=== PATIENT | male | born 1960 | race Caucasian/White ===

== ENCOUNTER 2017-02-06 09:00 | Emergency (ER) | payer OTHER ==
--- NOTE | 2017-02-06 09:21 | EDM.PDOC ---
ED HPI GENERAL MEDICAL PROBLEM - General Chief Complaint: Bite:Animal, Insect Stated Complaint: DOG BITE Time Seen by Provider: 02/06/17 09:12 Source of Information: Reports: Patient History Limitations: Reports: No Limitations - History of Present Illness INITIAL COMMENTS - FREE TEXT/NARRATIVE: Patient presents to the ED with complaint of a dog bite. 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 No other complaints. He was bitten in the right forearm. Onset: Today Onset Date: 02/06/17 Onset Time: 09:00 Location: Reports: Upper Extremity, Right Severity: Mild - Related Data Allergies Allergy/AdvReac Type Severity Reaction Status Date / Time No Known Drug Allergies Allergy Other Verified 02/06/17 09:12 Home Meds: Home Meds sulfaSALAzine [sulfaSALAzine DR] 500 mg PO BID 11/01/13 [History] Multivitamin [Multivitamins] 1 each PO DAILY 11/02/13 [History] Metoprolol Tartrate 12.5 mg PO BID 01/04/14 [History] Acetaminophen [Tylenol Extra Strength] 1,000 mg PO Q6H PRN 06/09/14 [History] Tetrahydrz/Dext 70/Peg 400/Pvp [Eye Drops] 15 ml OP ASDIRECTED 06/09/14 [History ] predniSONE [Prednisone] 7.5 mg PO DAILY 06/09/14 [History] cycloSPORINE [Restasis] 1 drop EYEBOTH DAILY 08/01/16 [History] Past Medical History HEENT History: Reports: Impaired Vision Cardiovascular History: Reports: Hypertension Musculoskeletal History: Reports: Arthritis, Fracture Neurological History: Reports: None Psychiatric History: Reports: Depression - Past Surgical History HEENT Surgical History: Reports: Other (See Below) GI Surgical History: Reports: Hernia, Inguinal, Other (See Below) Musculoskeletal Surgical History: Reports: Other (See Below) Social & Family History - Tobacco Use Smoking Status *Q: Never Smoker Second Hand Smoke Exposure: No - Caffeine Use Caffeine Use: Reports: Coffee Other Caffeine Use: coffee 4 cups. pop 4 cans - Alcohol Use Days Per Week of Alcohol Use: 7 Number of Drinks Per Day: 1 Total Drinks Per Week: 7 - Recreational Drug Use Recreational Drug Use: No Drug Use in Last 12 Months: No - Living Situation & Occupation Living situation: Reports: Occupation: Employed Review of Systems - Review of Systems Review Of Systems: ROS reveals no pertinent complaints other than HPI. ED EXAM, GENERAL - Physical Exam Exam: See Below Exam Limited By: No Limitations General Appearance: Alert, WD/WN, No Apparent Distress Skin Exam: Warm, Dry, Wound/Incision (small 2 cm scrape of the right forearm. No puncture) Departure - Departure Time of Disposition: 09:22 Disposition: Home, Self-Care 01 Condition: Good Clinical Impression: Dog bite of arm - Discharge Information Instructions: Animal Bite, [id number] Additional Instructions: Take all of the course of augmentin to reduce your chance of infection. Wash with soap and water You can take the dressing off as soon as it is no longer draining Signs of infection can include temperature over 101.5F, increased swelling, redness, pain, site becomes hot to the touch, starts having a red streak going up your arm, or any pus like drainage. Please call with any questions or concerns. - Problem List & Annotations (1) Dog bite of arm SNOMED Code(s): 485752081 Code(s): S41.159A - OPEN BITE OF UNSPECIFIED UPPER ARM, INITIAL ENCOUNTER; W54.0XXA - BITTEN BY DOG, INITIAL ENCOUNTER Status: Acute Priority: Low Qualifiers: Encounter type: initial encounter Laterality: right Qualified Code(s): S41.151A - Open bite of right upper arm, initial encounter; W54.0XXA - Bitten by dog, initial encounter - Problem List Review Problem List Initiated/Reviewed/Updated: Yes - Assessment/Plan Assessment:: dog bite, right forearm Plan: Take all of the course of augmentin to reduce your chance of infection. Wash with soap and water You can take the dressing off as soon as it is no longer draining Signs of infection can include temperature over 101.5F, increased swelling, redness, pain, site becomes hot to the touch, starts having a red streak going up your arm, or any pus like drainage. Please call with any questions or concerns.
== END 2017-02-06 09:30 | disposition home or self-care (01) ==
LOC: VM.ED 09:00
CPT/HCPCS: 99283

== ENCOUNTER 2017-03-12 11:15 | Emergency (ER) | payer OTHER ==
[2017-03-12] MEDS ORDERED: Sodium Chloride 0.9% 10 ML Syringe FLUSH PRN (11:24)
[2017-03-12] MEDS ORDERED: Sodium Chloride 0.9% 1,000 ML IV ONE (11:25)
[2017-03-12] MEDS ORDERED: Adenosine 6 MG/2 ML SDV IVPUSH ONE ×2 (11:26→11:50)
[2017-03-12 12:13] LABS: CHLORIDE,CL 104 mmol/L (98-107); SODIUM,NA 140 mmol/L (136-145)
[2017-03-12 14:09] VITALS: BP 104/62
--- NOTE | 2017-03-15 07:58 | ER ---
Date of Service: 03/12/2017 SUBJECTIVE: Gerald presents to the emergency room with complaints of diaphoresis and palpitations. The patient states that he has been experiencing these symptoms for several hours today. The patient states he has no history of tachydysrhythmia and denies any coronary artery disease. 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 He initially presented to the clinic and then was brought over to the emergency room for evaluation and treatment. PAST MEDICAL HISTORY: 1. Hypertension. 2. Vitamin D3 deficiency. 3. Benign tumor behind right eye. 4. Rheumatoid arthritis. 5. Depression. MEDICATIONS: 1. Losartan/hydrochlorothiazide. 2. Vitamin D3. 3. Aspirin. 4. Flomax. 5. CellCept. 6. Lexapro. 7. Metoprolol tartrate. 8. Cyclosporine. 9. Multivitamin. 10.Prednisone. 11.Sulfasalazine for RA flares. ALLERGIES: NKDA. REVIEW OF SYSTEMS: General: Denies any fever or chills. HEENT: No sore throat, rhinorrhea, or congestion. Respiratory: No shortness of breath. Cardiac: Denies any substernal chest pain. No jaw, arm, neck, or back pain. Please see history present illness. Gastrointestinal: No nausea, vomiting, or diarrhea. No melena, hematochezia, or hematemesis. Genitourinary: Denies any dysuria. Musculoskeletal: No myalgias or arthralgias. Neurologic: No fainting, blackouts, or lightheadedness. PHYSICAL EXAMINATION: General: This is a 57-year-old male patient, who is in no acute distress. Vital Signs: Blood pressure is 135/113, heart rate is 144, temperature is 36.7, respiratory rate 18, and O2 saturations 99%. Skin: Warm, pale, and mildly diaphoretic. HEENT: Mouth, oral mucosa is moist. Lungs: Clear to auscultation. Heart: Tachycardic but regular. No murmurs noted. Lungs: Clear to auscultation. Abdomen: Soft, nontender. There is no masses noted. There is no hepatosplenomegaly noted. Extremities: Without edema. Neurologic: The patient is alert and oriented, answers all questions appropriately. His speech is fluent. His gait is within normal limits. DIAGNOSTIC DATA: A 12-lead EKG was obtained showing an SVT at a rate of approximately 150. LABORATORY DATA: WBCs 12.6, hemoglobin is 14.1, and platelets are 273. Coags; PT is 9.9, INR is 0.9. Chemistry; sodium is 140, potassium is 4.0, chloride is 104, bicarb is 25, BUN is 23, creatinine is 1.3, GFR is 57, glucose is 127, calcium is 9.2, corrected calcium is 9.36, phosphorus is 3.7, magnesium is 1.9, total bilirubin is 0.7, AST is 35, ALT is 52, alkaline phosphatase is 76, CK elevated at 473, CK-MB 13.2, troponin is less than 0.017, total protein is 6.5, TSH is 1.050. EMERGENCY ROOM COURSE: IV access was established. He was started on normal saline wide open. He was given initially adenosine 6 mg IV and this did not convert him to a sinus rhythm. The patient was subsequently given a 12 mg of adenosine followed by a flush of saline and the patient converted into bradycardic sinus rhythm for several seconds and then eventually converted to a sinus rhythm at a rate of approximately 70. Repeat EKG did not show any acute ST or T-wave abnormality. His EKGs were faxed to [facility] for evaluation by Cardiology. The patient remained stable in my care in the emergency room. ASSESSMENT: Supraventricular tachycardia. PLAN: Again, did discuss the findings with [facility]. They advised not starting the patient on any medication at this time and did advise either admitting him for serial cardiac enzymes and EKG. I did advise this to the patient but he refused and subsequently wished to be discharged. We did advise him to come back at approximately 6 o'clock tonight for recheck of his cardiac enzymes. All questions were answered. He also will return if he develops any chest pain, shortness of breath, or tachycardia. MWK: 03/12/2017 16:49:57 MODL: 03/12/2017 21:34:32 /[id number]
== END 2017-03-12 13:53 | disposition home or self-care (01) ==
LOC: VM.ED 11:15
DX: I47.1 Supraventricular tachycardia (principal); I10 Essential (primary) hypertension; F32.9 Major depressive disorder, single episode, unspecified; M06.9 Rheumatoid arthritis, unspecified
CPT/HCPCS: 36415; 80053; 82550; 82553; 83735; 84100; 84443; 84484; 85025; 85610; 96361; 96374; 99285; J0153; J7030